=== PATIENT | male | born 1975 | race African-American/Black ===

== ENCOUNTER 2023-10-24 16:07 | Emergency (ER) | payer MEDICAID ==
[~2023-10-24] VITALS: Ht 193 cm; Wt 95.3 kg
[2023-10-24 16:59] VITALS: BP 128/78; TEMP 98.3; O2SAT 99
[2023-10-24] MEDS ORDERED: KETOROLAC TROMETHAMINE INJ 30 MG/ML VIAL ONE (17:34)
[2023-10-24] MEDS ORDERED: BACLOFEN (10 MG) 10 MG TABLET ONE (17:34)
[2023-10-24] MEDS: BACLOFEN (10 MG) 10 MG TABLET PO ONE (17:40)
[2023-10-24] MEDS: KETOROLAC TROMETHAMINE INJ 30 MG/ML VIAL IM ONE (17:40)
[2023-10-24] MEDS ORDERED: BACL10TA PO (18:50)
[2023-10-24] MEDS ORDERED: KETO10TA2 PO (18:50)
== END 2023-10-24 18:54 | disposition home or self-care (01) ==
LOC: ER 16:18
DX: M53.3 Sacrococcygeal disorders, not elsewhere classified (principal); M54.50 Low back pain, unspecified; Z60.2 Problems related to living alone
CPT/HCPCS: 99283; 96372; J1885